=== PATIENT | male | born 1970 | race African-American/Black ===

== ENCOUNTER 2018-11-19 11:30 | Inpatient (IN) ==
[2018-11-19] MEDS ORDERED: NS 1,000 ML ONE (11:54)
[2018-11-19 12:03] LABS: BASO# 0.02 X1000 (0.0-0.2); BASO% 0.1 % (0.0-0.8); EOS# 0.01 X1000 (0.0-0.7); EOS% 0.1 % (0.0-10.0); HEMATOCRIT 41.5 % (42.0-52.0); IMM GRAN# 0.05 X1000 (0.0-0.04); IMM GRAN% 0.3 % (0.0-0.5); LYMPH# 1.46 X1000 (1.2-3.4); LYMPH% 8.1 % (20.5-51.1); MCH 27.5 PG (27-31); MCHC 33.7 g/dL (33-37); MCV 81.4 FL (81-99); MONO# 0.74 X1000 (0.11-0.59); MONO% 4.1 % (1.7-9.3); MPV 12.5 FL (7.4-10.4); NEUT# 15.66 X1000 (1.4-6.5); NEUT% 87.3 % (42.2-75.2); PLT 268 X1000 (130-400); RDW 14.3 % (11.5-14.5); WBC 17.94 X1000 (4.8-10.8)
[2018-11-19 12:08] LABS: HEMOGLOBIN A1C 12.7 % (4.8-6.0)
[2018-11-19 12:21] LABS: BE 3.7 mmoll (-3.0-3.0); BLOOD TYPE ARTERIAL; HCO3-(ACT) 27.6 mmoll (20.0-26.0); METHB 1.2 % (0.0-1.5); PCO2(98.6) 39 mmHg (35-45); PO2(98.6) 57 mmHg (60-100); SAMPLE BLOOD; SAO2 94.3 % (95.0-100.0); THB 13.5 g/dL (11.5-17.4); pH(98.6) 7.46 (7.35-7.45)
[2018-11-19] MEDS ORDERED: NS 1,000 ML IV ONE ×2 (12:21→15:09)
[2018-11-19 12:25] LABS: ALLEN TEST YES; MODALITY ROOM AIR; O2HB 89.6 % (95.0-99.0)
[2018-11-19 12:27] LABS: BILIRUBIN URINE NEGATIVE (NEGATIVE); BLOOD URINE 1+ (NEGATIVE); CLARITY CLEAR (CLEAR); COLOR YELLOW; KETONE URINE 1+(Small) mg/dL (NEGATIVE); LEUKOCYTES URINE TRACE (NEGATIVE); NITRITE URINE NEGATIVE (NEGATIVE); PH URINE 6.5; PROTEIN URINE 2+(100 mg/dL) mg/dL (NEGATIVE); SP GRAVITY URINE 1.005; UROBILINOGEN URINE NORMAL
[2018-11-19 12:28] LABS: URINE EPITHELIAL CELLS <10 /HPF (<10); URINE SOURCE CLEAN CATCH; URINE WBC <10 /HPF (<10)
[2018-11-19 12:59] LABS: GLUCOSE 502 mg/dL (70-104)
[2018-11-19 13:00] LABS: ESTIMATED GFR > 60
[2018-11-19 13:01] LABS: AGAP 17; ALBUMIN 3.6 g/dL (3.5-5.0); ALKALINE PHOSPHATASE 143 U/L (32-122); BUN 16 mg/dL (8-22); CALCIUM 9.1 mg/dL (8.8-10.2); CHLORIDE 94 mmol/L (98-107); COSMO 296; GOT 13 U/L (10-34); GPT 9 U/L (10-44); SODIUM 136 mmol/L (136-145); TCO2 25 mmol/L (25-35); TOTAL PROTEIN 7.5 g/dL (6.3-8.3)
[2018-11-19] MEDS ORDERED: ZOFRAN IV ONE (13:17)
[2018-11-19] MEDS ORDERED: HUMALOG (PARKWAY) SUBQ ONE (13:38)
[2018-11-19] MEDS ORDERED: PHENERGAN IV ONE (15:01)
[2018-11-19] MEDS ORDERED: SODIUM CHLORIDE 0.9% INJ ONE (15:01)
[2018-11-19] MEDS ORDERED: DEMEROL IV ONE (15:01)
--- NOTE | 2018-11-19 15:39 | Diag Imaging Result Doc PS360 ---
CT ABD/PELVIS W/IV CONT ONLY - 11/19/2018 INDICATION: pain vomiting COMPARISON: None FINDINGS: The lung bases are clear and the heart size is normal. The urinary bladder is severely distended. There is a rather large cystic area in the origin of the penile urethra below the prostate gland. This measures 3.5 cm. This may be causing the hydronephrosis due to compression of the urethra itself. There is moderate to severe bilateral hydronephrosis. No bowel obstruction or inflammation. There are moderate degenerative changes of the spine. No acute or suspicious bony lesion. IMPRESSION: Severe urinary bladder outlet obstruction presumably from a large cystic area at the origin of the penile urethra below the prostate gland. The urinary bladder outlet obstruction causes significant bilateral hydronephrosis. Recommend placement of a Kam catheter for urinary bladder drainage, followed by an x-ray of the pelvis for confirmation. This exam was performed using automated exposure control, adjustment of mA or kV according to patient size, and/or use of iterative reconstruction technique Electronically signed by Julian Bello 11/19/2018 3:37 PM
--- NOTE | 2018-11-19 16:19 | PROVIDER DOCUMENTATION ---
This chart was entered by Sumi Garcia Scribe, acting as scribe for Chris Sanchez MD. HPI-General Adult - General Chief Complaint: High Blood Sugar Stated Complaint: ELEVATED BS / CONSTIPATION Time Seen by Provider: 11/19/18 11:45 Source: patient Allergies/Adverse Reactions: Patient Allergies Allergy/AdvReac Type Severity Reaction Status Date / Time No Known Allergies Allergy Verified 11/19/18 11:38 Home Medications: Home Medication List Medication Instructions Recorded Confirmed Last Taken Type Insulin Detemir [Levemir] 70 unit SUBQ DAILY 05/02/15 11/19/18 11/11/15 19:00 History LISINOpril [Prinivil] 5 mg PO DAILY #30 tablet 05/08/15 11/19/18 11/11/15 Rx Metoclopramide [Reglan] 10 mg PO AC + HS #0 tablet 05/08/15 11/12/15 11/11/15 Rx Metoprolol [Lopressor] 25 mg PO BID #60 tablet 05/08/15 11/19/18 11/10/15 Rx Omeprazole [Prilosec] 40 mg PO DAILY@0700 #30 capsule 05/08/15 11/19/18 11/11/15 Rx Rivaroxaban [Xarelto] 20 mg PO WSUPPER #30 tablet 05/08/15 11/19/18 11/11/15 Rx - History of Present Illness -Gen Adult Nature of Presenting Problems: 48 y/o male presents to ED with hyperglycemia, polyuria, and constipation onset 5 days ago. Pt reports he has not taken insulin in 2 years. Pt is alert and oriented. Location of Pain/Injury: reports: none Pain Radiation: reports: no radiation Quality of Pain: reports: none Severity: reports: moderate, severe Onset/Duration: reports: unsure (has not taken insulin in 2 years), 5 days ago (constipation) Timing: reports: still present Context/Activities at Onset: reports: none Modifying Factors: improves with: other medication (insulin) Associated Symptoms: reports: constipation, other (hyperglycemia; polyuria) Similar Symptoms Previously?: Yes (hx diabetes) Recently seen or treated by another doctor?: No - Diabetes Related Context Context: reports: high blood sugar Review of Systems - Adult - REVIEW OF SYSTEMS - ADULT Constitutional: reports: other (hyperglycemia). denies: chills, fever Eyes: reports: no symptoms reported Ears, Nose, Mouth & Throat: reports: no symptoms reported Cardiovascular: denies: chest pain, palpitations Respiratory: denies: cough, shortness of breath Gastrointestinal: reports: constipation. denies: abdominal pain, diarrhea, nausea, vomiting Genitourinary: reports: other (polyuria). denies: incontinence Musculoskeletal: denies: back pain, joint pain Integumentary: reports: no symptoms reported Neurological: denies: dizziness/vertigo, seizure Psychiatric: reports: no symptoms reported Endocrine: reports: goiter, other (hyperglycemia) Hematologic/Lymphatic: reports: no symptoms reported Allergic/Immunologic: reports: no symptoms reported All Other Systems: Reviewed and Negative Past History - Adult - PAST MEDICAL HISTORY-ADULT Review of Records: reports: Old Records Reviewed, Nursing Assessment Review, Medications Reviewed Major Childhood Illnesses: reports: denies history Cardiovascular: reports: HTN, hyperlipidemia Respiratory: reports: denies history Gastrointestinal: reports: denies history, ulcer Obstetrical/Gynecological: reports: denies history Genitourinary: reports: denies history Musculoskeletal: reports: denies history, other (neuropathy) Neurological: reports: denies history Endocrine/Immune: reports: Diabetes Other Conditions: reports: denies history - PRIOR SURGERIES/PROCEDURES Surgical/Procedure History: reports: reviewed, not pertinent - IMMUNIZATION STATUS Childhood Immunizations: See Nurse Assessment Flu Vaccine: See Nurse Assessment - FAMILY HISTORY Family History: reviewed, not pertinent - SOCIAL HISTORY Smoking: less than 1 pack/day Provider spent 3-5 mins advising pt. on dangers of tobacco.: Discussed manners to quit use, and f/u contacts for add'l counseling. Substance Use: none/never Alcohol Use Frequency: occasionally Living Situation: family Physical Exam-General - PHYSICAL EXAM-ADULT Initial Vital Signs Reviewed: Yes - CONSTITUTIONAL General Appearance: appears well, alert, no apparent distress - EYES Eyes: PERRL/EOMI, pink conjunctivae - HEAD, EARS, NOSE, MOUTH & THROAT HENMT: normocephalic/atraumatic, normal ENT inspection. negative: moist mucous membranes (dry) - NECK Neck: non-tender, full range of motion - RESPIRATORY Respiratory: chest non-tender, lungs clear, normal breath sounds - CARDIOVASCULAR Cardiovascular: tachycardia - GASTROINTESTINAL (ABDOMEN) Abdominal Exam: normal bowel sounds, non tender, soft - MUSCULOSKELETAL Back Exam: normal inspection, no CVA tenderness Extremity: normal range of motion, non-tender, normal gait, normal inspection - SKIN Integumentary: normal color, warm/dry - NEUROLOGIC Neurologic: grossly normal - PSYCHIATRIC Psych/Mental Status: normal mood/affect, normal thought content, normal thought process Progress - PLAN OF CARE/RESULTS Progress/Plan/Lab Results: Vital Signs - 8 hr 11/19/18 11:36 Temperature 99.2 F Pulse Rate 117 H Respiratory Rate 20 Blood Pressure 148/86 O2 Sat by Pulse Oximetry 96 Orders Category Date Time Status Finger Stick Blood Sugar (ED) DIRECTED Care 11/19/18 11:45 Active Saline Loc NOW Care 11/19/18 11:56 Active A1C HGB W EST AVG GLUCOSE [CHEM] Stat Lab 11/19/18 11:40 Received CBC WITH ELECTRONIC DIFF [HEME] Stat Lab 11/19/18 11:40 Results COMPREHENSIVE METABOLIC PANEL [CHEM] Stat Lab 11/19/18 11:[address] W/POSS RFLX CULT [URINALYSIS] Stat Lab 11/19/18 11:46 Uncollected Hypo/Hyperglycemia Complaint Stat Oth 11/19/18 11:45 Ordered Laboratory Tests 11/19/18 11/19/18 11/19/18 11:40 11:40 11:40 WBC 17.94 H RBC 5.10 Hgb 14.0 Hct 41.5 L MCV 81.4 MCH 27.5 MCHC 33.7 RDW Std Deviation 14.3 Plt Count 268 MPV 12.5 H Immature Gran % (Auto) 0.3 Neut % (Auto) 87.3 H Lymph % (Auto) 8.1 L Howell % (Auto) 4.1 Eos % (Auto) 0.1 Baso % (Auto) 0.1 Immature Gran # (Auto) 0.05 H Neut # (Auto) 15.66 H Lymph # (Auto) 1.46 Howell # (Auto) 0.74 H Eos # (Auto) 0.01 Baso # (Auto) 0.02 Specimen Type Sample Site pH pCO2 pO2 HCO3 Base Excess Oxyhemoglobin ABG O2 Sat (Calculated) ABG O2 Saturation ABG Carboxyhemoglobin ABG Methemoglobin Zeke Test A-a O2 Difference Total Hemoglobin Lactate Blood Gas Modality FiO2 % Sodium Potassium Chloride Carbon Dioxide Anion Gap BUN Creatinine Estimated GFR/1.73 m2 BUN/Creatinine Ratio Glucose Estimat Average Glucose 318 Hemoglobin A1c 12.7 H Calculated Osmolality Calcium Total Bilirubin AST ALT Alkaline Phosphatase Total Protein Albumin Globulin Albumin/Globulin Ratio Urine Source CLEAN CATCH Urine Color YELLOW Urine Clarity CLEAR Urine pH 6.5 Ur Specific [place] 1.005 Urine Protein 2+(100 mg/dL) A Urine Ketones 1+(Small) A Urine Blood 1+ A Urine Nitrite NEGATIVE Urine Bilirubin NEGATIVE Urine Urobilinogen NORMAL Urine Microscopic RBC 10-20 A Urine WBC TRACE A Urine Microscopic WBC <10 Ur Epithelial Cells <10 Urine Glucose 3+(500 mg/dL) A 11/19/18 11/19/18 12:00 12:35 WBC RBC Hgb Hct MCV MCH MCHC RDW Std Deviation Plt Count MPV Immature Gran % (Auto) Neut % (Auto) Lymph % (Auto) Howell % (Auto) Eos % (Auto) Baso % (Auto) Immature Gran # (Auto) Neut # (Auto) Lymph # (Auto) Howell # (Auto) Eos # (Auto) Baso # (Auto) Specimen Type ARTERIAL Sample Site R RADIAL pH 7.46 H pCO2 39 pO2 57 L HCO3 27.6 H Base Excess 3.7 H Oxyhemoglobin 89.6 L* ABG O2 Sat (Calculated) 17.0 ABG O2 Saturation 94.3 L ABG Carboxyhemoglobin 3.80 H ABG Methemoglobin 1.2 Zeke Test YES A-a O2 Difference 44.0 Total Hemoglobin 13.5 Lactate 1.20 Blood Gas Modality ROOM AIR FiO2 % 21.0 Sodium 136 Potassium 4.0 Chloride 94 L Carbon Dioxide 25 Anion Gap 17 BUN 16 Creatinine 1.0 Estimated GFR/1.73 m2 > 60 BUN/Creatinine Ratio 16 Glucose 502 H* Estimat Average Glucose Hemoglobin A1c Calculated Osmolality 296 Calcium 9.1 Total Bilirubin 0.30 AST 13 ALT 9 L Alkaline Phosphatase 143 H Total Protein 7.5 Albumin 3.6 Globulin 4.0 Albumin/Globulin Ratio 1.0 Urine Source Urine Color Urine Clarity Urine pH Ur Specific [place] Urine Protein Urine Ketones Urine Blood Urine Nitrite Urine Bilirubin Urine Urobilinogen Urine Microscopic RBC Urine WBC Urine Microscopic WBC Ur Epithelial Cells Urine Glucose Laboratory Tests 11/19/18 11/19/18 11/19/18 11:40 11:40 11:40 WBC 17.94 H RBC 5.10 Hgb 14.0 Hct 41.5 L MCV 81.4 MCH 27.5 MCHC 33.7 RDW Std Deviation 14.3 Plt Count 268 MPV 12.5 H Immature Gran % (Auto) 0.3 Neut % (Auto) 87.3 H Lymph % (Auto) 8.1 L Howell % (Auto) 4.1 Eos % (Auto) 0.1 Baso % (Auto) 0.1 Immature Gran # (Auto) 0.05 H Neut # (Auto) 15.66 H Lymph # (Auto) 1.46 Howell # (Auto) 0.74 H Eos # (Auto) 0.01 Baso # (Auto) 0.02 Specimen Type Sample Site pH pCO2 pO2 HCO3 Base Excess Oxyhemoglobin ABG O2 Sat (Calculated) ABG O2 Saturation ABG Carboxyhemoglobin ABG Methemoglobin Zeke Test A-a O2 Difference Total Hemoglobin Lactate Blood Gas Modality FiO2 % Sodium Potassium Chloride Carbon Dioxide Anion Gap BUN Creatinine Estimated GFR/1.73 m2 BUN/Creatinine Ratio Glucose POC Glucose Estimat Average Glucose 318 Hemoglobin A1c 12.7 H Calculated Osmolality Calcium Total Bilirubin AST ALT Alkaline Phosphatase Total Protein Albumin Globulin Albumin/Globulin Ratio Urine Source CLEAN CATCH Urine Color YELLOW Urine Clarity CLEAR Urine pH 6.5 Ur Specific [place] 1.005 Urine Protein 2+(100 mg/dL) A Urine Ketones 1+(Small) A Urine Blood 1+ A Urine Nitrite NEGATIVE Urine Bilirubin NEGATIVE Urine Urobilinogen NORMAL Urine Microscopic RBC 10-20 A Urine WBC TRACE A Urine Microscopic WBC <10 Ur Epithelial Cells <10 Urine Glucose 3+(500 mg/dL) A Gastric Occult Blood 11/19/18 11/19/18 11/19/18 12:00 12:35 13:20 WBC RBC Hgb Hct MCV MCH MCHC RDW Std Deviation Plt Count MPV Immature Gran % (Auto) Neut % (Auto) Lymph % (Auto) Howell % (Auto) Eos % (Auto) Baso % (Auto) Immature Gran # (Auto) Neut # (Auto) Lymph # (Auto) Howell # (Auto) Eos # (Auto) Baso # (Auto) Specimen Type ARTERIAL Sample Site R RADIAL pH 7.46 H pCO2 39 pO2 57 L HCO3 27.6 H Base Excess 3.7 H Oxyhemoglobin 89.6 L* ABG O2 Sat (Calculated) 17.0 ABG O2 Saturation 94.3 L ABG Carboxyhemoglobin 3.80 H ABG Methemoglobin 1.2 Zeke Test YES A-a O2 Difference 44.0 Total Hemoglobin 13.5 Lactate 1.20 Blood Gas Modality ROOM AIR FiO2 % 21.0 Sodium 136 Potassium 4.0 Chloride 94 L Carbon Dioxide 25 Anion Gap 17 BUN 16 Creatinine 1.0 Estimated GFR/1.73 m2 > 60 BUN/Creatinine Ratio 16 Glucose 502 H* POC Glucose 463 H D Estimat Average Glucose Hemoglobin A1c Calculated Osmolality 296 Calcium 9.1 Total Bilirubin 0.30 AST 13 ALT 9 L Alkaline Phosphatase 143 H Total Protein 7.5 Albumin 3.6 Globulin 4.0 Albumin/Globulin Ratio 1.0 Urine Source Urine Color Urine Clarity Urine pH Ur Specific [place] Urine Protein Urine Ketones Urine Blood Urine Nitrite Urine Bilirubin Urine Urobilinogen Urine Microscopic RBC Urine WBC Urine Microscopic WBC Ur Epithelial Cells Urine Glucose Gastric Occult Blood 11/19/18 11/19/18 11/19/18 14:38 15:43 16:03 WBC RBC Hgb Hct MCV MCH MCHC RDW Std Deviation Plt Count MPV Immature Gran % (Auto) Neut % (Auto) Lymph % (Auto) Howell % (Auto) Eos % (Auto) Baso % (Auto) Immature Gran # (Auto) Neut # (Auto) Lymph # (Auto) Howell # (Auto) Eos # (Auto) Baso # (Auto) Specimen Type Sample Site pH pCO2 pO2 HCO3 Base Excess Oxyhemoglobin ABG O2 Sat (Calculated) ABG O2 Saturation ABG Carboxyhemoglobin ABG Methemoglobin Zeke Test A-a O2 Difference Total Hemoglobin Lactate Blood Gas Modality FiO2 % Sodium Potassium Chloride Carbon Dioxide Anion Gap BUN Creatinine Estimated GFR/1.73 m2 BUN/Creatinine Ratio Glucose POC Glucose 424 H 380 H Estimat Average Glucose Hemoglobin A1c Calculated Osmolality Calcium Total Bilirubin AST ALT Alkaline Phosphatase Total Protein Albumin Globulin Albumin/Globulin Ratio Urine Source Urine Color Urine Clarity Urine pH Ur Specific [place] Urine Protein Urine Ketones Urine Blood Urine Nitrite Urine Bilirubin Urine Urobilinogen Urine Microscopic RBC Urine WBC Urine Microscopic WBC Ur Epithelial Cells Urine Glucose Gastric Occult Blood POSITIVE A Result Diagrams: 11/19/18 11:40 11/19/18 12:35 - CT/MRI 1 CT Study: Abdomen, Pelvis Impression: Abnormal (FINDINGS: The lung bases are clear and the heart size is normal. The urinary bladder is severely distended. There is a rather large cystic area in the origin of the penile urethra below the prostate gland. This measures 3.5 cm. This may be causing the hydronephrosis due to compression of the urethra itself. There is moderate to severe bilateral hydronephrosis. No bowel obstruction or inflammation. There are moderate degenerative changes of the spine. No acute or suspicious bony lesion. IMPRESSION: Severe urinary bladder outlet obstruction presumably from a large cystic area at the origin of the penile urethra below the prostate gland. The urinary bladder outlet obstruction causes significant bilateral hydronephrosis. Recommend placement of a Fernando catheter for urinary bladder drainage, followed by an x-ray of the pelvis for confirmation. This exam was performed using automated exposure control, adjustment of mA or kV according to patient size, and/or use of iterative reconstruction technique Electronically signed by Julian Bello 11/19/2018 3:37 PM) - CONSULTS/PCP/HOSPITALIST Notification #1 *Consult/PCP/Hospitalist*: Dr. Derick Larios Discussed: 15:57 Reason/Comments: Obstructing cyst at origin of penile urethra Consult Disposition: other (Consult urology) #2 Consult: Dr. Uriel Larios Discussed: 16:03 Reason/Comments: Obstructing cyst at origin of penile urethra Consult Disposition: Admit (Dr. Trevino states place fernando catheter and culture urine. He recommends admission.) #3 Consult: Dr. Derick Larios Discussed: 16:11 Reason/Comments: Obstructing cyst at origin of penile urethra; Dr. Trevino consult Consult Disposition: Admit Departure - Departure Date of Disposition Decision: 11/19/18 Time of Disposition Decision: 16:15 DIAGNOSIS: Upper GI bleed, Bladder outlet obstruction, Noncompliance, Tobacco abuse disorder Type 2 diabetes mellitus Qualifiers: Diabetes mellitus assisted insulin use: unspecified assisted insulin use status Diabetes mellitus complication status: with unspecified complications Qualified Code(s): E11.8 - Type 2 diabetes mellitus with unspecified complications Uncontrolled diabetes mellitus Qualifiers: Diabetes mellitus type: type 2 Glycemic state: with hyperglycemia Qualified Code(s): E11.65 - Type 2 diabetes mellitus with hyperglycemia Disposition: ADMITTED INPATIENT 09 Certified Medical Emergency: Emergent Condition: Stable Additional Freetext Instructions: ED Follow Up Instructions: You have been treated by a care provider in the Emergency Department. These instructions are being provided to you so you can have an understanding of how to care for yourself upon discharge. Upon discharge from the Emergency Dep artment, you are responsible for making arrangements for follow-up care by a physician of your choice. Take all prescribed medications as directed. Return to the Emergency Department immediately for any new or worsening symptoms. You may call the Physician Referral phone number at [phone] to obtain a list of Physicians who are taking new patients. Referrals and Follow-Ups: None,PCP [Primary Care Provider] - Discharge Education: Steps to Quit Smoking, [id number] - Critical Care Note This patient required my direct & personal management of CC.: No Attestation - Physician/ YOBANI Attestation Patient care was provided by Advanced Practice Provider:: No The physician spent face to face time with patient:: Yes Advanced Practice Provider documentation review:: Supervising physician onsite and consulted in the evaluation and care of this patient. The physician did have a face to face encounter with the patient. This chart was documented by the indicated scribe, (Sumi Garcia, Purnima) and accurately reflects the services I performed and decisions made by me, Chris Sanchez MD, as attested by the provider's signature.
[2018-11-19 16:43] LABS: URINE BACTERIA 1+ /HFP; URINE CAST NONE SEEN /LPF; URINE CRYSTAL NONE SEEN /HPF; URINE EPITHELIAL CELLS <10 /HPF (<10); URINE RBC <10 /HPF (<10); URINE WBC <10 /HPF (<10); URINE YEAST NONE SEEN /HPF
[2018-11-19 16:44] LABS: BILIRUBIN URINE NEGATIVE (NEGATIVE); BLOOD URINE TRACE (NEGATIVE); CLARITY CLEAR (CLEAR); COLOR YELLOW; KETONE URINE 1+(Small) mg/dL (NEGATIVE); LEUKOCYTES URINE NEGATIVE (NEGATIVE); NITRITE URINE NEGATIVE (NEGATIVE); PROTEIN URINE 2+(100 mg/dL) mg/dL (NEGATIVE); URINE SOURCE CLEAN CATCH; UROBILINOGEN URINE NORMAL
[2018-11-19] MEDS: NS 1,000 ML IV SCH (16:50)
--- NOTE | 2018-11-19 17:06 | HISTORY AND PHYSICAL ---
PRIMARY CARE PHYSICIAN: None. CHIEF COMPLAINT: An elevated blood sugar and abdominal pain for the past 5 days that has progressively worsened with some associated nausea/vomiting. HISTORY OF PRESENTING ILLNESS: This is a 48-year-old male, who presents to [facility] ER with complaints of a high blood sugar, difficulty urinating, constipation. States he has not taken any insulin for about 2 years. The abdominal pain had been present for about 5 days. His workup showed a white blood cell count of 17.94. His blood sugar was 502 with an anion gap of 17. His gastric occult blood was positive. We did an abdomen and pelvic CT that showed severe urinary bladder outlet obstruction, presumably from a large cystic area in the origin of the penile urethra below the prostate gland. The urinary bladder outlet obstruction causes significant bilateral hydronephrosis, and they recommended placement of a Kam catheter for urinary bladder drainage, followed by an x-ray of the pelvis for confirmation. The ER physician did speak with Dr. Trevino, on-call for Urology, who also recommended placing the Kam catheter. He was going to review the abdomen and pelvic CT, but felt that he could be admitted here at the [facility] at this time, so he will be admitted for further evaluation and treatment. PAST MEDICAL HISTORY: Diabetes type 2, hypertension, hyperlipidemia, and neuropathy. PAST SURGICAL HISTORY: None. FAMILY HISTORY: Reviewed and noncontributory. SOCIAL HISTORY: Currently lives with family. Smokes about a half pack of cigarettes a day. Denied any alcohol or illicit drug use. ALLERGIES: He has no known drug allergies. HOME MEDICATIONS: We will have to obtain a current list of home medications, and then we will review and restart as appropriate, but he states he has been off of his insulin for 2 years, so it is unclear if he has even been on any medications recently, but we will place an order for Nursing to update and confirm home medications, and then we will make that decision at that time. DIAGNOSTIC STUDIES: White blood cell count of 17.94, hemoglobin of 14, hematocrit 41.5, platelets 268,000. ABG with a pH of 7.46, pCO2 of 39, pO2 of 57, bicarbonate 27.6; this was on room air. Sodium 136, potassium 4, chloride 94, CO2 of 25, BUN of 16, creatinine 1, glucose 502. Hemoglobin A1c was 12.7. Urinalysis showed it was negative. Gastric occult blood was positive. CT of abdomen and pelvis showed severe urinary bladder outlet obstruction, presumably from a large cystic area at the origin of the penile urethra below the prostate gland. The urinary bladder outlet obstruction causes significant bilateral hydronephrosis. Recommend placement of a Kam catheter for urinary bladder drainage followed by an x-ray of the pelvis for confirmation. REVIEW OF SYSTEMS: He denied any fever, chills, blurred vision, dizziness. He was positive for some abdominal pain that was generalized, dysuria, polyuria, constipation, but denied any burning or hurting with urination. PHYSICAL EXAMINATION: VITAL SIGNS: On arrival he had a temperature of 99.2 degrees, pulse 117, respirations 20, blood pressure 148/86, saturating 96% on room air. GENERAL: This is a 48-year-old male, who is lying in the bed and answers questions appropriately. HEMNT: He is normocephalic, atraumatic. Normal ENT inspection. Oropharynx and nares are clear. EYES: Pupils are equal, round, and reactive to light and accommodation. Extraocular movements are intact. NECK: Normal inspection. Normal range of motion. LUNGS: Clear to auscultation bilaterally with equal lung expansion and chest wall movement. ABDOMEN: Soft. There was some tenderness to palpation throughout the entire abdomen. He did have positive bowel sounds x4 quadrants. MUSCULOSKELETAL: He has 5/5 strength x4 extremities. NEUROLOGICAL: His cranial nerves 2 through 12 appear grossly intact. ASSESSMENT: 1. Bladder outlet obstruction. 2. Diabetes, type 2, with hyperglycemia, uncontrolled. 3. Medical noncompliance. 4. Leukocytosis. 5. Positive gastric occult blood. OUR PLAN: He will be transferred to the [facility]. Placed on normal saline at 75 mL an hour. Pattern blood sugars with sliding scale insulin, diabetic diet. We will consult Urology, who made the decision after actually looking at that abdomen and pelvic CT himself, that he would need a surgical intervention most likely, but will see him when he gets to the [facility]. We will do serial hemoglobin and hematocrit q.6 x3. We will try to update and confirm home medications and recheck a CBC, BMP in the a.m. Tylenol 650 p.o. p.r.n., Zofran 4 mg IV q.4 h. P.r.n. I am going to hold on to starting him on any antibiotics for the leukocytosis. 1. It may be reactive. 2. We will wait to see what the Urology consultation wants to do with antibiotics. Further orders after seen by attending and [employer] consultant. Dictated by ADAM Koroma for Chloe Sepulveda MD cc: ADAM Koroma MD
--- NOTE | 2018-11-19 17:15 | HISTORY AND PHYSICAL ---
ADDENDUM REPORT This is a patient who is a 48-year-old gentleman, who was seen by me [id number] at the emergency room while he was in Room 9. He came in with lower abdominal pain and was found to have bladder outlet obstruction with a cystic mass below the prostate. He was also noted to have glucose levels of 502 with anion gap of 17 and white blood cell count of 17.94. His ABG showed a PO2 of 57. I believe that is related to his obesity, but he is a known diabetic and has been noncompliant. He has not been taking any medications. Urology has been consulted by the emergency department, and they want him to be transferred to [facility] for cystoscopy. We are going to start him on lispro insulin as per sliding scale subcutaneously and give him IV fluids. We are going to consult Dr. Trevino from Urology service to assist us in treating his urinary bladder outlet obstruction for which a Kam catheter has already been placed and 200 mL of urine was collected in the bag. The patient is feeling better already and denies having any other issues at this time. We are going to hold any antibiotic therapy at this time. Further recommendations will be given as per hospital course. cc: Chloe Sepulveda MD MTD[place]ovis
[2018-11-19] MEDS ORDERED: ZOFRAN IV PRN (18:24)
[2018-11-19] MEDS ORDERED: TYLENOL PO PRN (18:24)
[2018-11-19] MEDS: HUMALOG SUBQ SCH (22:32)
[2018-11-20 00:47] LABS: HEMATOCRIT 35.6 % (42.0-52.0); HEMOGLOBIN 11.4 g/dL (14.0-18.0)
[2018-11-20] MEDS: HUMALOG SUBQ SCH ×4 (06:21→21:23)
[2018-11-20 06:42] LABS: BASO# 0.03 X1000 (0.0-0.2); BASO% 0.2 % (0.0-0.8); EOS# 0.34 X1000 (0.0-0.7); EOS% 1.9 % (0.0-10.0); HEMATOCRIT 37.8 % (42.0-52.0); HEMOGLOBIN 11.9 g/dL (14.0-18.0); IMM GRAN# 0.04 X1000 (0.0-0.04); IMM GRAN% 0.2 % (0.0-0.5); LYMPH# 3.06 X1000 (1.2-3.4); LYMPH% 17.2 % (20.5-51.1); MCH 26.9 PG (27-31); MCHC 31.5 g/dL (33-37); MCV 85.3 FL (81-99); MONO% 8.4 % (1.7-9.3); MPV 12.7 FL (7.4-10.4); NEUT# 12.82 X1000 (1.4-6.5); NEUT% 72.1 % (42.2-75.2); PLT 223 X1000 (130-400); RBC 4.43 XMIL (4.7-6.1); RDW 14.2 % (11.5-14.5); WBC 17.79 X1000 (4.8-10.8)
[2018-11-20 07:17] LABS: AGAP 15; BUN 11 mg/dL (8-22); CALCIUM 8.8 mg/dL (8.8-10.2); CHLORIDE 105 mmol/L (98-107); COSMO 296; CREATININE 0.8 mg/dL (0.7-1.2); ESTIMATED GFR > 60; GLUCOSE 243 mg/dL (70-104); POTASSIUM 3.3 mmol/L (3.5-5.1); SODIUM 145 mmol/L (136-145); TCO2 25 mmol/L (25-35)
[2018-11-20] MEDS: NS 1,000 ML IV SCH (07:22)
--- NOTE | 2018-11-20 08:16 | CONSULTATION ---
DATE OF CONSULTATION: 11/20/2018 CHIEF COMPLAINT: Urinary retention with cystic urethral mass. HISTORY OF PRESENT ILLNESS: Mr. Henley is a 48-year-old with hypertension, hyperlipidemia, type 2 diabetes, who presented to [facility] ER yesterday with complaints of high blood sugars, difficulty with urination, and constipation. He states that this has been going on for about five days now. He says he has been constipated and unable to have regular bowel movements. He said he has developed difficulty with urination and straining to void. However, the patient states that he has been going to the bathroom very frequently and feels that it is difficult for him to empty his bladder to completion. He denies any fevers or chills but has significant suprapubic and lower abdominal pain. The patient presented to the emergency room, had blood work performed which showed a white blood cell count of 17.9, a blood sugar of 502, and a hemoglobin A1c of 12.7. He subsequently underwent a CT of the abdomen and pelvis which showed severe urinary bladder obstruction, presumably from a cystic area within the urethra itself near the prostate gland. The patient's bladder was significantly distended. A Kam catheter was inserted and drained clear yellow urine. The patient has remained afebrile, tolerating a diet. Urology was consulted for further recommendations. The patient has not seen a urologist before and denies family history of prostate cancer. Denies any voiding complaints prior to the past several days. He denies any hematuria or dysuria. PAST MEDICAL HISTORY: 1. Type 2 diabetes. 2. Hypertension. 3. Hyperlipidemia. PAST SURGICAL HISTORY: None. ALLERGIES: None. MEDICATIONS: The patient has been prescribed insulin but has not taken it in over two years now. He is not sure what his other home medications are. SOCIAL HISTORY: He smokes about a half a pack of cigarettes a day. Denies any alcohol or illicit drug use. FAMILY HISTORY: Denies family history of malignancy or kidney stones. PHYSICAL EXAMINATION: Vital Signs: Temperature 99 degrees, heart rate 97, blood pressure 148/83, oxygen saturation 94%. General: No acute distress. Resting comfortably in bed. Alert and oriented x3. HEENT: Normocephalic, atraumatic. Pupils equal, round, and reactive to light. Trachea midline with no obvious masses. Respiratory: Good respiratory effort without audible wheezing or rales. Cardiovascular: Regular rate and rhythm. No evidence of tachycardia. Abdomen: Soft, nontender, nondistended. No palpable masses. : Normal phallus with urethral catheter in place draining clear yellow urine. Bilateral testicles are slightly atrophic. Nontender to palpation. No obvious scrotal masses. Rectal: Digital rectal examination showed a small prostate with no palpable masses. The prostate measured approximately 20 g, smooth, with no nodules or asymmetry. Neurologic: Gross motor and sensory intact. Alert and oriented x3. Skin: No obvious skin lesions or rashes. Musculoskeletal: Moving all extremities. No obvious deformities. LABORATORY DATA: White blood cell count 17.8, hemoglobin 11.9, hematocrit 37.8, platelets 223,000. Sodium 145, potassium 3.3, chloride 105, bicarb 25, BUN 11, creatinine 0.6, glucose 243. IMAGING: CT of the abdomen and pelvis reviewed which showed a distended bladder with concern for outlet obstruction related to a cystic area within the urethra. Difficult to say if this is a prostatic abscess versus a lesion within the bulbar or penile urethra. This area measures approximately 3.5 cm and appears to be quite circular in appearance. The patient could have a penile urethral abscess leading to his symptoms versus having a utricle cyst leading to symptoms. The patient also has mild to moderate bilateral hydronephrosis present. ASSESSMENT AND PLAN: Mr. Henley is a 48-year-old with hypertension, hyperlipidemia, and type 2 diabetes who presented to the emergency room with abdominal pain and difficulty with urination. The patient's CT scan does show a cystic area within the urethra itself leading to a distended bladder and bilateral hydronephrosis. Uncertain origin of this cystic area. It could be a prostatic abscess as he has an elevated white blood cell count. The patient has not been antibiotics. We will start that today with Zosyn. We will plan for him to be nothing per oral and then go to the operating room for cystoscopy and transurethral incision of urethral abscess. Would also plan for bilateral retrograde pyelograms due to his hydronephrosis. Risks, benefits, and alternatives to the procedure were discussed with the patient, including bleeding, urinary incontinence, need for ureteral stents, damage to surrounding structures, worsening infection. The patient expressed understanding and elected to proceed. Will for procedure later today. cc: MD MOHSEN Jolley
[2018-11-20] MEDS: ZOSYN 3.375 GM in NS 50 ML IV SCH ×3 (09:56→21:23)
[2018-11-20] MEDS: POTASSIUM CHLORIDE 20 MEQ/SWI 20 MEQ/100 ML IVPB IV SCH ×2 (10:40→12:34)
[2018-11-20] MEDS ORDERED: VERSED ONE (11:27)
[2018-11-20] MEDS ORDERED: DIPRIVAN 1% ONE (11:27)
[2018-11-20] MEDS ORDERED: FENTANYL ONE ×2 (11:27→12:27)
[2018-11-20] MEDS ORDERED: ZOFRAN ONE ×2 (12:23→12:24)
[2018-11-20] MEDS ORDERED: DECADRON ONE ×2 (12:23→12:24)
[2018-11-20] MEDS ORDERED: LEVSIN PO PRN (13:18)
[2018-11-20] MEDS: DILAUDID ONE ×3 (13:21→13:37)
[2018-11-20 15:07] LABS: HEMATOCRIT 39.6 % (42.0-52.0); HEMOGLOBIN 12.3 g/dL (14.0-18.0)
[2018-11-20] MEDS ORDERED: PROTONIX IV SCH (16:45)
[2018-11-20] MEDS ORDERED: SODIUM CHLORIDE 0.9% INJ SCH (16:45)
[2018-11-20] MEDS ORDERED: XARELTO PO SCH (17:00)
--- NOTE | 2018-11-20 17:05 | PROGRESS NOTE ---
DATE: 11/20/2018 SUBJECTIVE: The patient has no major complaints. OBJECTIVE: Blood pressure is 148/74, respiratory rate 23, heart rate 98, temperature was 98 degrees, 94% on 2 L. PROBLEM LIST: 1. He has a bladder outlet obstruction associated with possible prostatic abscess. This fluid has been drained. He is status post drainage and I think Kam placement. We will continue empiric antibiotics, hydration, and follow closely. 2. Diabetes. Still not well controlled. That may be a contributing factor. We will go ahead and try to treat that and monitor. DISPOSITION: Pending clinical status, but he seems to be doing better. cc: Jos Thompson MD
[2018-11-20] MEDS: PERIDEX MT SCH (21:23)
[2018-11-20] MEDS: LOPRESSOR PO SCH (21:23)
[2018-11-21] MEDS: ZOSYN 3.375 GM in NS 50 ML IV SCH ×4 (03:48→20:38)
[2018-11-21] MEDS: NS 1,000 ML IV SCH ×2 (03:49→11:59)
[2018-11-21] MEDS: PERCOCET-5 PO PRN ×3 (03:53→22:33)
[2018-11-21 06:44] LABS: BASO# 0.03 X1000 (0.0-0.2); BASO% 0.2 % (0.0-0.8); HEMATOCRIT 36.3 % (42.0-52.0); HEMOGLOBIN 11.3 g/dL (14.0-18.0); IMM GRAN# 0.03 X1000 (0.0-0.04); IMM GRAN% 0.2 % (0.0-0.5); LYMPH# 3.63 X1000 (1.2-3.4); MCH 26.8 PG (27-31); MCHC 31.1 g/dL (33-37); MCV 86.2 FL (81-99); MONO# 1.02 X1000 (0.11-0.59); MONO% 6.8 % (1.7-9.3); MPV 12.4 FL (7.4-10.4); NEUT# 10.09 X1000 (1.4-6.5); NEUT% 66.8 % (42.2-75.2); PLT 212 X1000 (130-400); RBC 4.21 XMIL (4.7-6.1); RDW 14.2 % (11.5-14.5)
[2018-11-21] MEDS: HUMALOG SUBQ SCH ×4 (07:01→22:24)
[2018-11-21] MEDS: PRILOSEC PO SCH (07:01)
[2018-11-21 07:21] LABS: AGAP 12; BUN 11 mg/dL (8-22); CALCIUM 8.3 mg/dL (8.8-10.2); CHLORIDE 97 mmol/L (98-107); COSMO 272; CREATININE 0.9 mg/dL (0.7-1.2); ESTIMATED GFR > 60; GLUCOSE 243 mg/dL (70-104); POTASSIUM 3.9 mmol/L (3.5-5.1); SODIUM 132 mmol/L (136-145); TCO2 23 mmol/L (25-35)
--- NOTE | 2018-11-21 08:18 | PROGRESS NOTE ---
DATE: 11/21/2018 SUBJECTIVE: Postop day 1 from cystoscopy with transurethral incision of periurethral abscess and bilateral retrograde pyelograms. The patient went to the operating room yesterday, and looking inside the bladder, the patient had a periurethral abscess which had slightly drained. I performed incision of this to resect the overlying tissue and place urethral catheter. The patient has been doing well since then. He has been tolerating a diet. He states that he has some pain in his penis at the tip where the catheter goes in. The catheter is draining clear yellow urine. The patient remains afebrile with stable vital signs. OBJECTIVE: Vital Signs: Temperature 98.5 degrees, heart rate 82, blood pressure 146/74, oxygen saturation 98% on nasal cannula. General: No acute distress. Resting comfortably in bed. Respiratory: No increased work of breathing. Patient on 2 L nasal cannula. Abdomen: Soft, nontender, nondistended. : Normal phallus. Bilateral testicles without masses or nodules. Urethral catheter is draining clear yellow urine without evidence of sediment or purulence. Extremities: No lower extremity edema. LABORATORY DATA: White blood cell count 15.1, hemoglobin 11.3, hematocrit 36.3, platelets 212,000. Sodium 132, potassium 3.9, chloride 97, bicarb 23, BUN 11, creatinine 0.9, glucose 243. ASSESSMENT AND PLAN: Mr. Henley is a 48-year-old with hyperlipidemia, hypertension, and type 2 diabetes, who presented to the emergency room with urinary retention and a periurethral mass on Tuesday. He appeared to have possible periurethral abscess. The patient was taken to the operating room yesterday for cystoscopy, transurethral unroofing of abscess, and bilateral retrograde pyelograms. The patient did have an abscess, and was able to resect over the neck to broaden this area up to allow for drainage from the abscess. A urine specimen was obtained and sent for culture. The patient had a Kam catheter placed, and his catheter has been draining well with clear yellow urine. The patient has made over 4.9 liters of urine since the catheter was placed, and overall appears to be doing well. He remains afebrile. His white blood cell count is improving. Will continue to monitor his urine culture. Hopefully that will return today. Continue on antibiotics, and tailor to culture data. Likely would keep today, and plan to possibly discharge tomorrow if culture returns. cc: Bo Trevino MD MTDD
--- NOTE | 2018-11-21 08:43 | Diag Imaging Result Doc PS360 ---
EXAM: RETROGRADES 2 OR 3 FILMS INDICATION: INCONTINENCE, URETHRAL ABSCESS TECHNIQUE: COMPARISON: None. FINDINGS: 16 spot fluoroscopic images were provided, which were performed during bilateral retrograde pyeloureterogram by Dr. Bo Trevino. The ureters appear grossly normal in course and caliber. The right renal collecting system is nondilated and there is no discrete filling defects. There appears to be incomplete opacification of the left renal collecting system only two lower pole calyces are opacified. No discrete filling defect is identified in these two calyces. IMPRESSION: As above. Please correlate with live fluoroscopic imaging. Electronically signed by Pb Arguelles 11/21/2018 8:40 AM
--- NOTE | 2018-11-21 11:01 | OPERATIVE NOTE ---
PROCEDURE DATE: 11/20/2018 PREOPERATIVE DIAGNOSES: 1. Periurethral cystic fluid collection. 2. Bladder outlet obstruction. POSTOPERATIVE DIAGNOSES: 1. Bladder outlet obstruction number. 2. Periurethral abscess. PROCEDURES PERFORMED: 1. Cystoscopy with bilateral retrograde pyelograms. 2. Transurethral incision of urethral abscess. 3. Urethral catheter placement. SURGEON: Bo Trevino MD. STRIKER OFF: None. COMPLICATIONS: None. BLOOD LOSS: 10 mL. DRAINS: An 18-Palestinian catheter. SPECIMEN REMOVED: 1. Urine culture. 2. Transurethral incision of urethral mucosa. ANESTHESIA: Endotracheal intubation. OPERATIVE FINDINGS: The patient had a normal distal urethra until entering into lower urethra at which time a ventral dorsal collection fluid and infection appeared to be visualized. This measured approximately 3 cm in size and was just distal to the verumontanum. I was able to enter into the bladder and the entirety of the bladder was inspected with no evidence of mucosal abnormalities, diverticulum, cellules, or bladder stones. Both ureteral orifices were visualized with efflux of clear yellow urine. The patient underwent bilateral retrograde pyelograms which showed normal ureters with no evidence of obstruction or hydronephrosis. No filling defects were visualized. Following this the patient underwent a uneventful transurethral unroofing of urethral abscess. Had 18F Coude catheter placed over a wire. INDICATION FOR PROCEDURE: Mr. Henley is a 48-year-old who presents to the emergency room yesterday with lower abdominal pain and nausea for several days. The patient endorsed voiding complaints. Labs were obtained which showed a white blood cell count of 17.7, with a normal creatinine, urinalysis concerning for possible infection. The patient had been voiding multiple times in small volumes. A CT of pelvis was performed for evaluation of his abdominal pain, which showed a distended bladder with what appeared to be a cystic lesion within the urethra itself, with mild bilateral hydronephrosis. Concern arose that the patient had bladder outlet obstruction from the cystic mass, and either this was a utricle cyst versus a periurethral abscess. Due to these imaging findings, Urology was consulted and recommended catheter placement and made NPO for procedure today. Risks, benefits, and alternatives to cystoscopy and transurethral incision of periurethral abscess were discussed the patient, as well as consideration for bilateral retrograde pyelograms due to his hematuria. This procedure was discussed at length and the patient elected to proceed. DESCRIPTION OF PROCEDURE: After informed consent was obtained, the patient was brought to the operating room and placed on the operative table in supine position. He underwent general anesthesia with endotracheal intubation and received preoperative antibiotics. The patient was then placed into a dorsal lithotomy position and was prepped and draped in the usual sterile fashion. A preoperative time-out was performed with all parties in agreement including anesthesia, surgical and nursing staff. Next a 21-Palestinian cystourethroscope was inserted through the urethra, which showed a normal pendulous urethra. On entry into the bulbar urethra there was evidence of a fluid collection ventral which distorted the normal mucosa. This appeared to be slightly already draining; however, I was able to go dorsally through the prostate which was small with no evidence of obstruction. The verumontanum appeared to be normal, and no evidence of high-riding prostate. On entry into the bladder, the entirety of the bladder was inspected with a 30 degree lens which showed no evidence of any papillary lesions, diverticulum, cellules or bladder stones. Both ureteral orifices were visualized with efflux of clear yellow urine. Following this, a cone-tip catheter was then passed through the scope. Flushed bubbles out and the left ureteral orifice was cannulated and injected with 5 mL of Omnipaque which outlined a normal ureter with no evidence of obstruction and no evidence of dilated collecting system. No filling defects were visualized within the kidney. The cone-tip catheter was removed and good drainage was seen from the collecting system. Our attention was then placed to the right side, and Omnipaque was injected which outlined a normal ureter and traveled all the way up into the collecting system without obstruction. A delicate system was visualized and no evidence of filling defects. Hydronephrosis as we seen on the prior CT scan seemed to have resolved and likely related to the distention of the bladder on initial scan. Good post drainage film was obtained which showed good drainage from both collecting systems. Next, the cystourethroscope was completely removed and a 26-Palestinian resectoscope was obtained with a resection loop. This was passed through the urethra until the periurethral abscess was visualized. Some drainage was seen from this already; however, there still was residual purulence. The decision was made to incise this area to ensure good drainage from the abscess to decrease his risk of recurrence, this area was opened up to create a wide neck. The mucosa was evaluated which appeared to be an abscess cavity, no evidence of any deeper involvement was seen, no evidence of any papillary lesions were seen within the urethra. These areas were excised and then drained out through the scope and sent for pathology analysis. The bladder had a significant amount of sediment, this was obtained and sent for a urine culture. The urethra was then re-evaluated, and the abscess pocket appeared to be well drained with no evidence of any obvious purulence. The edges appeared to be hemostatic, and no obvious urethral mucosal chips were seen within the bladder, at which time a wire was passed through the resectoscope and into the bladder, and the resectoscope was removed. We then attempted to place a 20-Palestinian silicone catheter over the wire into the bladder using a catheter. However, due to the straight nature of this catheter it was difficult to pass over the lip of the defect from the urethral abscess. Subsequently, an 18-Palestinian coude catheter was obtained and easily passed over the wire and into the bladder. Good drainage was seen from the catheter, this was irrigated and drained in and out easily. It was inflated with 10 mL of sterile water and placed to gravity drainage. A StatLock was attached to the lower extremity. The patient was awoken and was taken to the recovery room in stable condition. The patient will be returned to the floor with indwelling catheter and will continue indwelling catheter for least 2 weeks following the procedure. cc: Bo Trevino MD MTDClovis
[2018-11-21] MEDS: LEVEMIR SUBQ SCH (11:13)
[2018-11-21] MEDS: LOPRESSOR PO SCH ×2 (11:15→20:37)
[2018-11-21] MEDS: PRINIVIL PO SCH (11:15)
[2018-11-21] MEDS: PERIDEX MT SCH ×2 (11:15→20:37)
[2018-11-21] MEDS ORDERED: MIRALAX PO ONE (17:32)
[2018-11-21] MEDS: LACTULOSE PO SCH (20:37)
[2018-11-21] MEDS ORDERED: VANCOMYCIN IV PER PHARMACY MISC SCH (22:45)
--- NOTE | 2018-11-21 23:09 | PROGRESS NOTE ---
DATE: 11/21/2018 SUBJECTIVE: The patient has no major complaints. He was sleeping when I assessed him. OBJECTIVE: Blood pressure 150/86, heart rate of 85, respiratory rate 18, temperature 98.6 degrees, 96% on room air. Cardiovascular: Regular rate and rhythm. Pulmonary: Bilateral breath sounds, clear to auscultation. GI: Soft, nontender, nondistended. Bowel sounds are positive. LABORATORY DATA: White count is down to 15, hemoglobin and hematocrit 11 and 36, platelets of 212,000. Sodium 132, blood sugar 243. Microbiology: Gram-positive cocci per urine culture. ASSESSMENT AND PLAN: 1. Prostatic abscess, status post incision and drainage. He is growing out gram-positive cocci, so I think probably we may need to add vancomycin. He is currently on Zosyn, which will be acceptable if this is not methicillin-resistant Staphylococcus aureus. 2. Bladder outlet obstruction, status post Kam catheter. The patient is requesting to have that removed and states that it needs to be removed prior to discharge. We explained that it would be unlikely and unsafe, so we will continue to follow. 3. Diabetes. Appears to be overall well controlled. Continue his regular medications and follow. 4. Hypertension. We will continue his regular medications and monitor his blood pressure closely. 5. Disposition: Pending his clinical status. We will continue to follow closely. cc: Jos Thompson MD
[2018-11-21 23:50] LABS: AGAP 8; ALB/GLOB RATIO 0.9; ALBUMIN 2.6 g/dL (3.5-5.0); ALKALINE PHOSPHATASE 98 U/L (32-122); BUN 8 mg/dL (8-22); CALCIUM 7.1 mg/dL (8.8-10.2); CHLORIDE 106 mmol/L (98-107); COSMO 281; CREATININE 0.7 mg/dL (0.7-1.2); ESTIMATED GFR > 60; GLUCOSE 225 mg/dL (70-104); GOT 9 U/L (10-34); GPT 6 U/L (10-44); POTASSIUM 3.3 mmol/L (3.5-5.1); SODIUM 138 mmol/L (136-145); TCO2 24 mmol/L (25-35); TOTAL BILIRUBIN < 0.15 mg/dL (0.20-1.00); TOTAL PROTEIN 5.4 g/dL (6.3-8.3)
[2018-11-22] MEDS: NS 1,000 ML IV SCH ×2 (01:31→17:21)
[2018-11-22] MEDS: VANCOMYCIN 2,000 MG in NS 500 ML IV SCH ×2 (01:38→15:05)
[2018-11-22] MEDS: PERCOCET-5 PO PRN ×2 (04:13→14:19)
[2018-11-22] MEDS: ZOSYN 3.375 GM in NS 50 ML IV SCH ×2 (04:14→14:22)
[2018-11-22] MEDS: PRILOSEC PO SCH ×2 (05:43→06:50)
[2018-11-22] MEDS: HUMALOG SUBQ SCH ×2 (06:21→14:52)
[2018-11-22] MEDS ORDERED: INSULIN PEN NEEDLES ONE (06:53)
[2018-11-22 07:00] LABS: BASO# 0.02 X1000 (0.0-0.2); BASO% 0.2 % (0.0-0.8); EOS# 0.41 X1000 (0.0-0.7); EOS% 4.3 % (0.0-10.0); HEMATOCRIT 36.3 % (42.0-52.0); HEMOGLOBIN 11.6 g/dL (14.0-18.0); LYMPH# 3.14 X1000 (1.2-3.4); LYMPH% 33.3 % (20.5-51.1); MCV 84.4 FL (81-99); MONO% 7.4 % (1.7-9.3); MPV 12.2 FL (7.4-10.4); NEUT# 5.16 X1000 (1.4-6.5); NEUT% 54.8 % (42.2-75.2); PLT 246 X1000 (130-400); RDW 13.5 % (11.5-14.5); WBC 9.43 X1000 (4.8-10.8)
--- NOTE | 2018-11-22 07:05 | PROGRESS NOTE ---
DATE: 11/22/2018 SUBJECTIVE: No acute events overnight. The patient has made good urinary output with over 5 L of urine recorded. Urine remains clear yellow. The patient denies any fevers, chills. Abdomen is soft, nontender, nondistended. Minimal pain or discomfort. The patient is tolerating diet. Had a bowel movement yesterday. Awaiting final urine culture data. OBJECTIVE: Vital Signs: Temperature 98.6 degrees, heart rate 85, blood pressure 131/93, oxygen saturation 99% on room air. General: No acute distress. Resting comfortably in bed. Respiratory: Good respiratory effort without audible wheezing or rales. Abdomen: Soft, nontender, nondistended. No palpable masses or CVA tenderness. Genitourinary: Urethral catheter in place draining clear yellow urine. No suprapubic tenderness. Musculoskeletal: Moving all extremities. LABS: Sodium 138, potassium 3.3, bicarb 24, BUN 8, creatinine 0.9, glucose 225. Urine culture growing gram-positive cocci 30,000 to 40,000 colony-forming units per mL. ASSESSMENT AND PLAN: Mr. Henley is a 48-year-old with hypertension, hyperlipidemia, type 2 diabetes, who presented to the emergency room on Tuesday with urinary retention and a periurethral mass. This appeared to be a periurethral abscess. Patient was taken to the operating room on 11/20/2018 for cystoscopy and transurethral unroofing of his abscess and bilateral retrograde pyelograms. The patient has been doing well since then. He has remained afebrile. His infection count yesterday was 15, awaiting results from today. Urine culture is still in lab but is growing gram-positive cocci 30,000 to 40,000. Patient is making good urinary output with over 5 L recorded. Urine is clear yellow with no evidence of any sediment or clots. The patient will need to keep indwelling catheter for at least 10 to 14 days and then would obtain a retrograde urethrogram alongside the catheter to evaluate for healing of his urethra. Awaiting final culture results and then can transition to oral antibiotics and likely discharged home. We will continue to monitor. Please call with questions or concerns. cc: MD MOHSEN Jolley
[2018-11-22] MEDS: PRINIVIL PO SCH (08:40)
[2018-11-22] MEDS: LOPRESSOR PO SCH (08:40)
[2018-11-22] MEDS: LEVEMIR SUBQ SCH (08:40)
[2018-11-22] MEDS: PERIDEX MT SCH (08:40)
[2018-11-22] MEDS: LACTULOSE PO SCH ×2 (08:44→08:46)
[2018-11-22] MEDS ORDERED: MIRALAX PO SCH (09:00)
[2018-11-22 15:30] VITALS: BP 157/82
--- NOTE | 2018-11-22 22:35 | DISCHARGE SUMMARY ---
ADMISSION DATE: 11/19/2018 DISCHARGE DATE: 11/22/2018 DISCHARGE DIAGNOSES: 1. Prostatic abscess with positive culture for strep agalactiae group B strep. 2. Acute kidney injury. 3. Acute bladder obstruction associated with prostatic abscess. HISTORY AND HOSPITAL COURSE: Briefly, a 48-year-old male diabetic, who presented with bladder outlet obstruction. He was placed on antibiotics, although not initially. Urology was consulted and did initiate antibiotics. Retrograde pyelogram showed nondilated right renal collecting system. He underwent cystoscopy, drainage and catheter placement and per Dr. Trevino fluid was collected again grew out agalactiae. Initial white count 17. At time of discharge, it is down to 9. Initial creatinine actually was not really elevated 1, and is 0.7 at time of discharge. Overall felt to be positive. He did have some heme positivity when he threw up, but there was no gross bleeding. In any case, patient was admitted, treated and was sent home on Levaquin for 7 days, [place], Pyridium as needed, and his regular medications. Levemir 70 daily, Lopressor 25 b.i.d., Prilosec 40 daily, lisinopril 5 daily. Now the Xarelto, I am not sure he is still taking that. It is not clear that he is still taking that. Will hold antiplatelets. Supposed to follow up with Dr. Trevino next week. Keep the catheter in place and continue to monitor. Return for worsening pain, swelling or bleeding. cc: MD Bo Shahid MD Michael Putman, MD
== END 2018-11-22 17:21 | disposition home or self-care (01) | DRG 671 ==
LOC: P.ED 11:30 → 4N 17:18 → SUATTDRO 17:18
PROVIDERS: ATTEND Internal Medicine
CPT/HCPCS: 51702; 74177; 74420; 80048; 80053; 81001; 82271; 82805; 82948; 83036; 85014; 85018; 85025; 87077; 87088; 87186; 88304; 88312; 94761; 94799; 99285; A9270; C9113; J1100; J1170; J1815; J2175; J2250; J2405; J2543; J2550; J3010; J3370; J3480; J7030; J7040; Q9966; Q9967; S0164; XXXXX